=== PATIENT | female | born 1970 | race Asian ===

== ENCOUNTER → 2023-04-01 08:32 | Outpatient (REF) | payer BC, SELFPAY | LOC: RAD 08:32 | PROVIDERS: ATTENDING PHYSICIAN Family Medicine | DX: Z78.0 Asymptomatic menopausal state (principal) | CPT/HCPCS: 77080 ==

== ENCOUNTER → 2023-12-30 15:12 | Outpatient (REF) | payer BC, SELFPAY | LOC: RAD 15:12 | PROVIDERS: ATTENDING PHYSICIAN Physician Assistant Medical; FAMILY PHYSICIAN Family Medicine | DX: R22.1 Localized swelling, mass and lump, neck (principal) | CPT/HCPCS: 76536 ==

== ENCOUNTER → 2024-01-19 14:29 | Outpatient (REF) | payer BC, SELFPAY | LOC: WDC 14:29 | PROVIDERS: ATTENDING PHYSICIAN Physician Assistant Medical | DX: Z12.31 Encounter for screening mammogram for malignant neoplasm of breast (principal) | CPT/HCPCS: 77063; 77067 ==

== ENCOUNTER 2024-05-13 09:04 | Emergency (ER) | payer BC, SELFPAY ==
[2024-05-13 09:06] VITALS: BP 135/87
[2024-05-13 10:12] VITALS: BMI 18.0
[2024-05-13] MEDS: CARAFATE SUSPENSION 1 GM PO (10:13)
--- NOTE | 2024-05-13 10:43 | ED.GENMED ---
History of Present Illness
General
Chief Complaint: Abdominal Pain
Time Seen by Provider: 05/13/24 10:01
History of Present Illness
History of Present Illness:
53-year-old female with no past medical history presents for evaluation of chest and upper abdominal discomfort when swallowing for the past 2 days. Began after accidentally swallowing a quarter sized clamshell. Denies any hematemesis. Able to
tolerate secretions. Has not seen the foreign body pass in her stool.
Review of Systems
Review of Systems
Allergies reviewed?: Yes
All Other Systems: ROS reviewed and negative except as documented in HPI and ROS
Phy Exam
Physical Exam
Physical Exam:
GEN: Well appearing, NAD, WDWN
HEENT: Oral mucosa moist, no scleral icterus
Cardiac: Regular rate
Lung: No respiratory distress, no tachypnea
Abdomen: Soft, nontender
MSK: No gross deformity or injuries
Skin: Good color, no pallor or jaundice, no rashes
Neuro: AO x3, moves all extremities freely
Psych: Calm, cooperative
Course
Orders/Labs/Results
Orders:
Orders
05/13/24 10:08
Sucralfate Suspension [Carafate Suspension] 1 gm PO NOW STA
CR Obstruct Series W/pa Chest Urgent
Comment:
Reason For Exam: upper abd pain after FB ingestion
Vital Signs
Initial and Last Documented VS:
Initial Vital Signs
Temp Pulse Resp BP Pulse Ox
98.4 F 69 16 135/87 98
05/13/24 09:06 05/13/24 09:06 05/13/24 09:06 05/13/24 09:06 05/13/24 09:06
Last Documented Vital Signs
Temp Pulse Resp BP Pulse Ox
98.4 F 69 16 135/87 98
05/13/24 09:06 05/13/24 09:06 05/13/24 09:06 05/13/24 09:06 05/13/24 09:06
MDM/Problems Addressed
MDM/Problems Addressed:
Likely mild esophageal injury secondary to foreign body ingestion. X-ray showed no evidence for pneumomediastinum suggesting esophageal perforation. She has no abdominal tenderness suggesting acute surgical process. No visible gastrointestinal
foreign body on plain films. Discussed supportive care
*Critical Care Note
Total Time (30-74mins, 75-104mins- exclusive of procedures): Not Applicable
Update Note
Update Note:
1648: UPDATE, radiology report reviewed, the small 2 x 1 mm foreign body that apparently is in the left chest wall versus left lung appears to be much smaller than what the patient described as her ingested foreign body. Additionally she had no
symptoms of pleural foreign body. Contact the patient and left a message indicating that she should either return to the ER or call her primary care doctor for dedicated chest x-ray or chest CT to localize this further
ED Attending Note
-
Portions of this chart may have been created with voice recognition software.� Occasional wrong word or��sound alike� substitutions may have occurred due to the inherent limitations of voice recognition software.
Discharge Plan
Departure
Patient Disposition: Home (Routine Discharge)
Date of Disposition: 05/13/24
Time of Disposition: 10:45
Patient with high blood pressure during this ER visit?: No
Discharge Problem:
Abrasion of esophagus
Prescriptions:
New
pantoprazole 40 mg tablet,delayed release (DR/EC)
40 mg PO DAILY Qty: 10 0RF
sucralfate [Carafate] 1 gram tablet
1 g PO AC Qty: 20 0RF
Rx Instructions:
Dissolve in 10mL clear liquid prior to consumption
Referrals:
Jason Reinoso MD [Active] -
Lucy Steinberg DO [Family Provider] -
Interventions
Interventions:
*Risk Screen - Suicide Last Done: 05/13/24 09:06
*General Assessment Last Done: 05/13/24 09:06
*Neglect/Abuse Screening Last Done: 05/13/24 09:06
*ED COVID-19 Vaccine History Last Done: 05/13/24 09:06
*Nursing Disposition Last Done: 05/13/24 11:00
[facility]-Jrhg[facility]-Mswxslzvhf Assessment Last Done: 05/13/24 10:16
Discharge Date and Time
Discharge Date/Time: 05/13/24 11:00
Print Language: [id number]
== END 2024-05-13 11:00 | disposition home or self-care (01) ==
LOC: EMR 09:04
PROVIDERS: EMERGENCY PHYSICIAN Emergency Medicine; FAMILY PHYSICIAN Family Medicine
DX: S27.818A Other injury of esophagus (thoracic part), initial encounter (principal); W44.8XXA Other foreign body entering into or through a natural orifice, initial encounter; R91.8 Other nonspecific abnormal finding of lung field
CPT/HCPCS: 99283; 74022

== ENCOUNTER 2024-05-18 15:13 | Emergency (ER) | payer BC, SELFPAY ==
[2024-05-18 15:15] VITALS: BP 139/86
--- NOTE | 2024-05-18 15:20 | ED.GENMED ---
History of Present Illness
General
Chief Complaint: Abnormal Lab Value
Source: patient and records
Exam Limitations: none
Time Seen by Provider: 05/18/24 15:19
History of Present Illness
History of Present Illness:
53yoF with a history of GERD and hepatitis B presenting for evaluation of an abnormal CXR. Patient reports possibly swallowing a clamshell 1 week ago. She states she was eating a soup and felt a discomfort in the back of her throat like she
swallowed something sharp. The discomfort gradually traveled the length of her esophagus. She looked down and saw half a clam shell in the soup and believes she swallowed the other half. She has been having intermittent chest discomfort after
swallowing over the past several months. Those symptoms became worse 5 days ago and she was seen in the ED on 05/13/2024 for her symptoms. Chest x-ray revealed 'Projecting over the medial aspect of the left lower lung, there is a small 2 mm x 1 mm
radiodensity, suggesting a small foreign body. Exact location is uncertain, as this could be within the lung, the chest wall, or overlying the patient. Consideration for follow-up 2 view chest radiograph, to attempt localization.' She is relatively
asymptomatic at this time but does continue to have intermittent chest discomfort after swallowing. She denies any chest discomfort currently. No shortness of breath or dysphagia.
Phy Exam
General Physical Exam
General Presentation: well appearing and no apparent distress
General age: appears stated age
General Skin: warm and dry
General Habitus: normal
General Mental: alert
ENT Exam
ENT Exam: normocephalic
Cardiovascular Exam
Cardiovascular Exam: regular rate/rhythm and no murmur
Pulmonary Exam
Pulmonary Exam: lungs clear, no respiratory distress, no rales, no crackles and no rhonchi
Neurological Exam
Neurological Exam: alert
Ana Coma Scale
Eye Opening: Spontaneous
Verbal Response: Oriented
Motor Response: Obeys Commands
GCS Total Score: 15
Skin Exam
Skin Exam: normal color and warm/dry
Psychiatric Exam
Psychiatric Exam: normal mood/affect
Course
Orders/Labs/Results
Orders:
Orders
05/18/24 15:20
CR Chest - 2 Views Urgent
Comment:
Reason For Exam: possible FB in lung
Vital Signs
Initial and Last Documented VS:
Initial Vital Signs
Temp Pulse Resp BP Pulse Ox
98.4 F 73 18 139/86 100
05/18/24 15:15 05/18/24 15:15 05/18/24 15:15 05/18/24 15:15 05/18/24 15:15
Last Documented Vital Signs
Temp Pulse Resp BP Pulse Ox
98.4 F 73 18 139/86 100
05/18/24 15:15 05/18/24 15:15 05/18/24 15:15 05/18/24 15:15 05/18/24 15:15
MDM/Problems Addressed
Differential Diagnosis Includes:
53yoF here after possibly swallowing a clamshell 1 week ago. CXR 5 days ago showed a small FB in the L lower chest in an unknown location. C/o intermittent chest discomfort after swallowing x several months. No current discomfort. VSS. She is well
appearing in no distress. Differential diagnosis includes but is not limited to: aspirated FB, soft tissue FB, calcification
Two view CXR obtained which shows a punctate FB which localizes to the anterior lower chest wall. This does not appear to be an aspirated FB. Uncertain etiology. Last mammogram showed benign breast calcifications and she reports having a prior L
breast biopsy with clip placement. Advised f/u with PCP. She was discharged in stable condition.
*Critical Care Note
Total Time (30-74mins, 75-104mins- exclusive of procedures): Not Applicable
ED Attending Note
-
Portions of this chart may have been created with voice recognition software.� Occasional wrong word or��sound alike� substitutions may have occurred due to the inherent limitations of voice recognition software.
Discharge Plan
Departure
Patient Disposition: Home (Routine Discharge)
Date of Disposition: 05/18/24
Time of Disposition: 16:29
Patient with high blood pressure during this ER visit?: No
Discharge Problem:
Abnormal chest x-ray
Instructions: X-ray
Prescriptions:
No Action
pantoprazole 40 mg tablet,delayed release (DR/EC)
40 mg PO DAILY Qty: 10 0RF
sucralfate [Carafate] 1 gram tablet
1 g PO AC Qty: 20 0RF
Rx Instructions:
Dissolve in 10mL clear liquid prior to consumption
Referrals:
Lucy Steinberg DO [Family Provider] -
Activity Restrictions/Additional Instructions:
Please follow-up with your family doctor. Return to the ER with any new or worsening symptoms.
Interventions
Interventions:
*Risk Screen - Suicide Last Done: 05/18/24 15:15
*General Assessment Last Done: 05/18/24 15:15
*Neglect/Abuse Screening Last Done: 05/18/24 15:15
*ED- Fall Risk Assessment Last Done: 05/18/24 16:43
*ED COVID-19 Vaccine History Last Done: 05/18/24 16:43
*Nursing Disposition Last Done: 05/18/24 16:43
Discharge Date and Time
Discharge Date/Time: 05/18/24 16:44
Print Language: CHILEAN
== END 2024-05-18 16:44 | disposition home or self-care (01) ==
LOC: EMR 15:13
PROVIDERS: EMERGENCY PHYSICIAN Emergency Medicine; FAMILY PHYSICIAN Family Medicine
DX: R91.8 Other nonspecific abnormal finding of lung field (principal); K21.9 Gastro-esophageal reflux disease without esophagitis
CPT/HCPCS: 99283; 71046

== ENCOUNTER → 2024-06-21 06:55 | Outpatient (REF) | payer BC, SELFPAY | LOC: RAD 06:55 | PROVIDERS: ATTENDING PHYSICIAN Internal Medicine Gastroenterology; FAMILY PHYSICIAN Family Medicine | DX: B18.1 Chronic viral hepatitis B without delta-agent (principal) | CPT/HCPCS: 76700 ==

== ENCOUNTER → 2024-09-14 07:39 | Outpatient (REF) | payer BC, SELFPAY | LOC: WDC 07:39 | PROVIDERS: ATTENDING PHYSICIAN Family Medicine | DX: R92.2 Inconclusive mammogram (principal) | CPT/HCPCS: 76641 ==

== ENCOUNTER → 2024-10-26 14:28 | Outpatient (REF) | payer BC, SELFPAY | LOC: RAD 14:28 | PROVIDERS: ATTENDING PHYSICIAN Physician Assistant Medical; FAMILY PHYSICIAN Family Medicine | DX: R07.81 Pleurodynia (principal) | CPT/HCPCS: 71101 ==

== ENCOUNTER → 2024-12-07 11:11 | Outpatient (REF) | payer BC, SELFPAY | LOC: HWRCS 11:11 | PROVIDERS: ATTENDING PHYSICIAN Internal Medicine; FAMILY PHYSICIAN Family Medicine | DX: R07.89 Other chest pain (principal); R00.2 Palpitations | CPT/HCPCS: 93306 ==

== ENCOUNTER → 2024-12-28 08:21 | Outpatient (REF) | payer BC, SELFPAY | LOC: HWRCS 08:21 | PROVIDERS: ATTENDING PHYSICIAN Internal Medicine; FAMILY PHYSICIAN Family Medicine | DX: R07.89 Other chest pain (principal); R00.2 Palpitations | CPT/HCPCS: 78452; 93017; A9500 ==

== ENCOUNTER → 2025-01-25 08:59 | Outpatient (REF) | payer BC, SELFPAY | LOC: WDC 08:59 | PROVIDERS: ATTENDING PHYSICIAN Surgery; FAMILY PHYSICIAN Family Medicine | DX: N64.52 Nipple discharge (principal) | CPT/HCPCS: 76642; 77062; 77066 ==

== ENCOUNTER → 2025-02-27 11:51 | Outpatient (REF) | payer BC, SELFPAY | LOC: MRI 3T 11:51 | PROVIDERS: ATTENDING PHYSICIAN Surgery; FAMILY PHYSICIAN Family Medicine | DX: N64.52 Nipple discharge (principal) | CPT/HCPCS: 77049; A9585 ==